=== PATIENT | female | born 1945 | race Caucasian/White ===

== ENCOUNTER 2017-08-05 07:40 | Day surgery (SDC) | payer MEDICARE ==
[~2017-08-05] VITALS: Ht 160 cm; Wt 95.6 kg
[~2017-08-05 07:40] MED LIST: ALBU8.5H8 INH; ATOR40TA78 PO; FLUT9.9S NAS; GLYB2.5T2 PO; INSU100I28 SQ; IPRA4AER INH; LEVO50TA5 PO; MAGN250T9 PO; METF500T4 PO; METO50TA82 PO; METO5TAB5 PO; OMEG-69 PO; PANT40TA3 PO; POTA99TA14 PO; RIVA20TA PO; TIOT4MIS5 INH; TORS20TA2 PO; [UNRECOGNIZED DRUG - OTHER] PO
[2017-08-05] MEDS ORDERED: LACTATED RINGERS 1,000 ML IV SCH (09:14)
[2017-08-05 09:15] VITALS: BP 153/85
[2017-08-05 09:17] LABS: HEMATOCRIT 29.8 % (34.6-47.8); HEMOGLOBIN 9.1 g/dL (11.7-16.4)
[2017-08-05 09:42] LABS: BLOOD UREA NITROGEN 17 mg/dL (7-18)
[2017-08-05] MEDS ORDERED: ONDANSETRON 2MG/ML, 2ML ONE (10:00)
[2017-08-05] MEDS ORDERED: ROCURONIUM 10 MG/ML ONE (10:00)
[2017-08-05] MEDS ORDERED: DEXAMETHASONE 4 MG/ML, 1ML ONE (10:00)
[2017-08-05] MEDS ORDERED: SUCCINYLCHOLINE 20 MG/ML, 10ML ONE (10:00)
[2017-08-05] MEDS ORDERED: PROPOFOL 10 MG/ML, 20ML ONE (10:00)
[2017-08-05] MEDS ORDERED: ONDANSETRON 2MG/ML, 2ML IVPush PRN (10:30)
[2017-08-05] MEDS ORDERED: hydrALAzine 20 MG/ML, 1ML IV PRN (10:30)
[2017-08-05] MEDS ORDERED: FENTANYL PF 100 MCG/2ML IV PRN (10:30)
[2017-08-05] MEDS ORDERED: LABETALOL 5MG/ML, 20ML IV PRN (10:30)
[2017-08-05] MEDS ORDERED: ALBUTEROL SULFATE 2.5 MG/3 ML NPPB PRN (10:30)
[2017-08-05] MEDS ORDERED: HYDROmorphone 1 MG/ML, 1ML IV PRN (10:30)
[2017-08-05] MEDS ORDERED: PROMETHAZINE 25 MG/ML, 1ML IV PRN (10:30)
[2017-08-05] MEDS ORDERED: OXYcodone 5 MG/5 ML ORAL.SOL UDC PO PRN (10:30)
[2017-08-05] MEDS ORDERED: MEPERIDINE/PF 25MG/0.5ML IVPush PRN (10:30)
[2017-08-05] MEDS ORDERED: MIDAZOLAM 1 MG/ML, 2ML IV PRN (10:30)
== END 2017-08-05 12:15 ==
LOC: OUT 07:40
PROVIDERS: ATTEND Specialist
DX: D64.9 Anemia, unspecified (principal); K55.21 Angiodysplasia of colon with hemorrhage; I10 Essential (primary) hypertension; E78.5 Hyperlipidemia, unspecified; K21.9 Gastro-esophageal reflux disease without esophagitis; J44.9 Chronic obstructive pulmonary disease, unspecified; E03.9 Hypothyroidism, unspecified; Z87.39 Personal history of other diseases of the musculoskeletal system and connective tissue; Z88.8 Allergy status to other drugs, medicaments and biological substances; Z88.1 Allergy status to other antibiotic agents; Z91.040 Latex allergy status
CPT/HCPCS: 36415; 44378; 80048; 82962; 85027; 93005; J7120; J1100; J2405; J2704; J0330